=== PATIENT | female | born 1970 | race Caucasian/White ===

== ENCOUNTER 2016-10-15 21:03 | Emergency (ER) | payer BC ==
[2016-10-15 22:43] VITALS: TEMP 97.9; O2SAT 96
--- NOTE | 2016-10-16 00:29 | CT ---
EXAM DESCRIPTION: CT Abdomen/Pelvis w/Contrast CLINICAL HISTORY: abdominal pain, recent history of malrotation COMPARISON: None Available TECHNIQUE: Contiguous axial images of the abdomen and pelvis were obtained after the administration of intravenous contrast followed by reconstruction images. FINDINGS: The liver, spleen, pancreas and kidneys are within normal limits. There is no hydronephrosis or renal stones. The gallbladder is unremarkable by CT criteria. Adrenal glands are within normal limits. Aorta is of normal caliber and tapering. There is no free fluid in the abdomen or pelvis. There is no bowel obstruction. There is no stranding of the mesenteric fat to suggest an inflammatory response. The appendix was not visualized. There is no pericecal inflammation. There is a small hiatal hernia. There is an umbilical hernia with fatty component only. There is no discrete pelvic mass. There is a 2.6 cm right ovarian cyst. This is an almost certainly benign finding. As per best practice protocol, no further follow-up imaging is recommended. IMPRESSION: No acute intra-abdominal abnormality Electronically signed by: Michel Moreno MD 10/16/2016 12:29 AM CDT
--- NOTE | 2016-10-16 00:42 | ED.PDOC ---
History of Present Illness - General Chief Complaint: GI Problem Stated Complaint: abd distension Time Seen by Provider: 10/15/16 22:12 Source: patient Exam Limitations: no limitations - History of Present Illness Initial Comments: Patient presents with increased abdominal fullness for several days. She says that she had a "small" bowel movement this morning but that her bms have been getting smaller each day. She says she can feel her abdomen becoming more bloated. She is concerned because one year ago she had a "malrotation" that required hospitalization with NG tube. She has not had N/V/D/F. No urinary sx. Normal appetite. No other complaints. Timing/Duration: 1 week Severity: moderate Improving Factors: nothing Worsening Factors: nothing Associated Symptoms: denies symptoms Allergies/Adverse Reactions: Allergies Gatifloxacin [From TeQuin] Adverse Reaction (Verified 03/15/15 04:13) Home Medications: Ambulatory Orders Loratadine [Claritin] 10 mg PO DAILY 03/15/15 diphenhydrAMINE HCL [Benadryl] 25 mg PO BID PRN 03/15/15 Review of Systems - Review of Systems Constitutional: States: no symptoms reported EENTM: States: no symptoms reported Respiratory: States: no symptoms reported Cardiology: States: no symptoms reported Genitourinary: States: see HPI Musculoskeletal: States: no symptoms reported Skin: States: no symptoms reported Neurological: States: no symptoms reported Endocrine: States: no symptoms reported Hematologic/Lymphatic: States: no symptoms reported Past Medical History (General) - Patient Medical History Hx Seizures: No Hx Stroke: No Hx Dementia: No Hx Asthma: No Hx of COPD: No Hx Cardiac Disorders: No Hx Congestive Heart Failure: No Hx Pacemaker: No Hx Hypertension: No Hx Thyroid Disease: No Hx Diabetes: No Hx Gastroesophageal Reflux: No Hx Renal Disease: No Hx Cancer: No Hx of HIV: No Hx Hepatitis C: No Hx MRSA: No Surgical History: no surgical history - Vaccination History Hx Tetanus, Diphtheria Vaccination: No Hx Influenza Vaccination: No Hx Pneumococcal Vaccination: No Immunizations Up to Date: No - Social History Hx Tobacco Use: No Hx Chewing Tobacco Use: No Hx Alcohol Use: No Hx Substance Use: No Hx Substance Use Treatment: No Hx Depression: No Feels Threatened In Home Enviroment: No Hx Physical Abuse: No Hx Emotional Abuse: No Hx Suspected Abuse: No - Activities of Daily Living Hospice Agency (if applicable):: None - Female History Patient is a Female of Child Bearing Age (10 -59 yrs old): No Hx Last Menstrual Period: 02/26/15 Patient : No Family Medical History - Family History Mother Family History: Unknown Living Status: Still Living Father Living Status: Cause of : Prostate cancer Age of Onset (years of age): 56 Physical Exam - Physical Exam General Appearance: Alert Respiratory: lungs clear Cardiovascular/Chest: regular rate, rhythm Gastrointestinal/Abdominal: normal bowel sounds, non tender, soft, no organomegaly Back Exam: no CVA tenderness Extremity: normal inspection, no pedal edema Skin Exam: normal color Lymphatic: no adenopathy Progress - Progress Progress: 10/16/16 00:43 Increased lymphocyte to neutrophil ration on wbc. Total wbc normal. CT ab/pelvis showed no acute disease. UA normal. Patient discharged with instructions to increase fluids and follow up with pcp if constipation develops. Laboratory Tests 10/15/16 10/15/16 22:12 22:29 WBC 6.6 RBC 4.59 Hgb 14.5 Hct 42.9 MCV 93.5 MCH 31.5 H MCHC 33.7 RDW 13.6 Plt Count 341 MPV 7.5 Absolute Neuts (auto) 2.20 Absolute Lymphs (auto) 3.50 H Absolute Monos (auto) 0.60 Absolute Eos (auto) 0.30 Absolute Basos (auto) 0.10 Neutrophils % 33.3 L Lymphocytes % 52.4 H Monocytes % 8.6 Eosinophils % 4.6 Basophils % 1.1 Sodium 137 Potassium 3.9 Chloride 103 Carbon Dioxide 28 Anion Gap 9.9 L BUN < 5 L Creatinine 0.74 BUN/Creatinine Ratio 6.8 L Random Glucose 91 Serum Osmolality 270.7 L Calcium 9.1 Total Bilirubin 0.7 AST 44 H ALT 51 Alkaline Phosphatase 54 Serum Total Protein 7.1 Albumin 4.0 Globulin 3.1 Albumin/Globulin Ratio 1.3 Lipase 20 L Serum HCG, Qual Negative Urine Color Yellow Urine Appearance Clear Urine pH 5.5 Ur Specific [place] 1.015 Urine Protein Negative Urine Glucose (UA) Negative Urine Ketones Negative Urine Blood Negative Urine Nitrite Negative Urine Bilirubin Negative Urine Urobilinogen 0.2 Ur Leukocyte Esterase Negative Urine RBC 0 Urine WBC 1-3 Ur Epithelial Cells 10-20 Urine Bacteria 3+ H Urine Mucus Trace Departure - Departure Clinical Impression: Abdominal pain, Constipation Disposition: Discharge to Home or Self Care Condition: Good Departure Forms: ED Discharge - Pt. Copy, Patient Portal Self Enrollment Diet: resume usual diet Activity: increase activity as tolerated Home Medications: Ambulatory Orders Loratadine [Claritin] 10 mg PO DAILY 03/15/15 diphenhydrAMINE HCL [Benadryl] 25 mg PO BID PRN 03/15/15 Additional Instructions: Increase oral fluids. Follow up with your regular doctor if constipation develops.
[2016-10-16 01:11] VITALS: BP 123/74
== END 2016-10-16 01:10 | disposition home or self-care (01) ==
LOC: ER 21:03
DX: K59.00 Constipation, unspecified (principal); Z88.8 Allergy status to other drugs, medicaments and biological substances

== ENCOUNTER → 2016-10-23 | Outpatient (CLI) | payer BC ==
--- NOTE | 2016-10-24 08:53 | RAD ---
Two view abdomen. Indication: EPIGASTRIC PAIN Comparison: None. Impression: No free air under the diaphragm. Bowel gas pattern nonspecific without findings of obstruction or constipation. No abnormal calcifications. No acute osseous abnormality. Electronically signed by: Mateo Hood MD 10/24/2016 8:52 AM CDT
== END | disposition home or self-care (01) ==
LOC: RAD 15:40
PROVIDERS: ATTEND Surgery
DX: R10.13 Epigastric pain (principal)

== ENCOUNTER → 2019-10-12 | Outpatient (CLI) | payer BC | DX: Z12.31 Encounter for screening mammogram for malignant neoplasm of breast (principal) ==